=== PATIENT | male | born 1960 | race African-American/Black ===

== ENCOUNTER 2024-06-06 19:03 | Emergency (ER) | payer OTHER, SELFPAY ==
[2024-06-06] MEDS ORDERED: traMADol HCl 50 MG TAB ONE (20:39)
== END 2024-06-06 20:10 ==
LOC: NAV ERS 19:03
DX: S00.83XA Contusion of other part of head, initial encounter (principal); I10 Essential (primary) hypertension; E11.9 Type 2 diabetes mellitus without complications; Z79.4 Long term (current) use of insulin; Z79.899 Other long term (current) drug therapy; W01.0XXA Fall on same level from slipping, tripping and stumbling without subsequent striking against object, initial encounter
CPT/HCPCS: 70450